=== PATIENT | female | born 1990 ===

== ENCOUNTER 2017-08-28 10:10 | Emergency (ER) | payer MEDICAID ==
[2017-08-28 10:42] VITALS: TEMP 98.1; BMI 35.7
[2017-08-28] MEDS ORDERED: Sodium Chloride 0.9% 1,000 ML IV STA (11:03)
[2017-08-28 11:25] LABS: URINE BILIRUBIN NEGATIVE (NEGATIVE); URINE BLOOD NEGATIVE (NEGATIVE); URINE GLUCOSE (UA) NEGATIVE (NEGATIVE); URINE KETONE NEGATIVE (NEGATIVE); URINE LEUKOCYTE ESTERASE SMALL Leu/uL (NEGATIVE); URINE PROTEIN TRACE mg/dL (<30 mg/dL); URINE UROBILINOGEN 0.2 E.U./dL (<1 E.U./dL)
[2017-08-28 11:33] LABS: URINE APPEARANCE CLEAR (CLEAR); URINE COLOR YELLOW (YELLOW)
--- NOTE | 2017-08-28 11:33 | ED PDOC ---
Arrival/HPI - General Chief Complaint: Abdominal Pain Time Seen by Provider: 08/28/17 10:47 Historian: Patient - History of Present Illness Narrative History of Present Illness (Text): 08/28/17 11:26 26-year-old female presents today with right lower quadrant abdominal pain. Patient states the pain has been intermittent for the past 2 weeks but since this morning the pain has been constant. Patient states she's been vomiting and complaining of nausea. She describes the pain as sharp and throbbing and located in the right lower quadrant of the abdomen. Patient states the pain is nonradiating. Patient denies urinary symptoms. Denies fevers or chills. Denies chest pain or shortness of breath. Patient denies vaginal bleeding or discharge. Patient states she has not been using protection and is concerned that she may be . Patient also states she has a history of ovarian cysts. Past Medical History - Provider Review Nursing Documentation Reviewed: Yes - Travel History Have you recently traveled outside [place] w/in the past 3 mons?: No - Infectious Disease Hx of Infectious Diseases: None - Tetanus Immunization Tetanus Immunization: Unknown - Cardiac Hx Cardiac Disorders: No - Pulmonary Hx Respiratory Disorders: Yes Hx Asthma: Yes Hx Bronchitis: Yes - Neurological Hx Neurological Disorder: No - HEENT Hx HEENT Disorder: No - Renal Hx Renal Disorder: No - Endocrine/Metabolic Hx Endocrine Disorders: No - Hematological/Oncological Hx Blood Disorders: No - Integumentary Hx Dermatological Disorder: No - Musculoskeletal/Rheumatological Hx Musculoskeletal Disorders: No - Gastrointestinal Hx Gastrointestinal Disorders: No - Genitourinary/Gynecological Hx Genitourinary Disorders: No - Psychiatric Hx Psychophysiologic Disorder: Yes Hx Bipolar Disorder: Yes Hx Depression: Yes Hx Substance Use: No - Surgical History Hx Musculoskeletal Surgery: Yes (collar bone) Hx Tonsillectomy: Yes Other/Comment: Right collar bone sx, b/l ear sx TUBES, r ovary cysts removal sx - Anesthesia Hx Anesthesia: No (UNABLE TO BREATH DURING) Hx Anesthesia Reactions: No Hx Malignant Hyperthermia: No - Suicidal Assessment Feels Threatened In Home Enviroment: No Family/Social History - Physician Review Nursing Documentation Reviewed: Yes Family/Social History: Unknown Family HX Smoking Status: Former Smoker Hx Alcohol Use: Yes Hx Substance Use: No Hx Substance Use Treatment: No Allergies/Home Meds Allergies/Adverse Reactions: Allergies No Known Allergies Allergy (Verified 08/28/17 10:43) Review of Systems - Review of Systems Constitutional: absent: Fatigue, Fevers Respiratory: absent: SOB, Cough Cardiovascular: absent: Chest Pain, Palpitations Gastrointestinal: Abdominal Pain, Nausea, Vomiting. absent: Constipation, Diarrhea Genitourinary Female: absent: Dysuria, Frequency, Hematuria, Vaginal Bleeding, Vaginal Discharge Musculoskeletal: absent: Arthralgias, Back Pain, Neck Pain Skin: absent: Rash, Pruritis Neurological: absent: Headache, Dizziness Psychiatric: absent: Anxiety, Depression, Suicidal Ideation Physical Exam Vital Signs Reviewed: Yes Vital Signs Temp Pulse Resp BP Pulse Ox 08/28/17 15:57 98.1 F 96 H 18 122/57 L 97 08/28/17 15:27 79 18 126/78 96 08/28/17 13:24 89 18 128/86 96 08/28/17 12:35 98.1 F 99 H 20 131/93 H 95 08/28/17 11:14 94 H 18 136/68 99 08/28/17 10:41 98.1 F 106 H 19 141/75 99 Temperature: Afebrile Blood Pressure: Normal Pulse: Tachycardic Respiratory Rate: Normal Appearance: Positive for: Well-Appearing, Non-Toxic, Comfortable Pain Distress: None Mental Status: Positive for: Alert and Oriented X 3 - Systems Exam Head: Present: Atraumatic Mouth: Present: Moist Mucous Membranes Neck: Present: Normal Range of Motion Respiratory/Chest: Present: Clear to Auscultation, Good Air Exchange. No: Respiratory Distress, Accessory Muscle Use Cardiovascular: Present: Regular Rate and Rhythm, Normal S1, S2, Tachycardic Abdomen: Present: Tenderness (rlq tenderness, + suprapubic tenderness), Normal Bowel Sounds. No: Distention, Peritoneal Signs, Rebound, Guarding Genitourinary/Pelvic Exam: Present: Normal External Genitalia, Vaginal Discharge (+ white vaginal discharge noted), Cervical os Closed, Other ( chaparoned by chencho DIAZ). No: Vaginal Bleeding, Vaginal Lesions, Adenexal Tenderness, Adenexal Mass, Cervical Motion Tendernes, Odor Back: Present: Normal Inspection. No: CVA Tenderness Upper Extremity: Present: Normal ROM Lower Extremity: Present: Normal ROM Neurological: Present: GCS=15, Speech Normal Skin: Present: Warm, Dry, Normal Color. No: Rashes Psychiatric: Present: Alert, Oriented x 3 Medical Decision Making ED Course and Treatment: 08/28/17 11:35 Patient is nontoxic well appearing with stable vital signs presenting with [ severe] abdominal pain CBC wnl CMP wnl Lipase wnl Urinalysis + leukocytes, + yeast, + bacteria Ultrasound: FINDINGS: UTERUS: Measures 7.4 x 3.6 x 5.3 cm. Anteverted, normal in size and appearance. No fibroid or other mass lesion seen. ENDOMETRIUM: Measures 6.0 mm in diameter. Unremarkable. CERVIX: No cervical abnormality identified. RIGHT OVARY: Measures 3.6 x 3.8 x 2.0 cm. No solid mass. Normal flow. LEFT OVARY: Measures 3.8 x 3.8 x 2.2 cm. No solid mass. Normal flow. There is a 1.8 cm simple cyst. FREE FLUID: No significant free fluid noted. OTHER FINDINGS: None. IMPRESSION: Unremarkable pelvic ultrasound. CAT scan: FINDINGS: LOWER THORAX: Unremarkable. LIVER: Unremarkable. No gross lesion or ductal dilatation. GALLBLADDER AND BILE DUCTS: Unremarkable. PANCREAS: Unremarkable. No gross lesion or ductal dilatation. SPLEEN: Unremarkable. ADRENALS: Unremarkable. No mass. KIDNEYS AND URETERS: Unremarkable. No hydronephrosis. No solid mass. VASCULATURE: Unremarkable. No aortic aneurysm. BOWEL: Unremarkable. No obstruction. No gross mural thickening. APPENDIX: Normal appendix. PERITONEUM: Unremarkable. No free fluid. No free air. LYMPH NODES: Unremarkable. No enlarged lymph nodes. BLADDER: Unremarkable. REPRODUCTIVE: There is a lobulated cyst in the left adnexum measuring 32 x 36 mm. This could also be seen previously BONES: No acute fracture. OTHER FINDINGS: None. IMPRESSION: No acute findings. No evidence of appendicitis Patient reassessment: pt non toxic well appearing; no distress. feeling better after medications pt with white vaginal discharge; will treat for gc/chlamydia and send cultures. will add diflucan for yeast infection. will d/c home with keflex for uti. discussed all results in depth with patient and advised f/u with pmd and HISTOTECHNOLOGIST. advised immediate return if symptoms worsen,persist or if new symptoms develop. Patient verbalizes understanding of discharge instructions and need for immediate followup. all aspects of this case were discussed the attending of record. Impression: Abdominal pain, UTI, vaginal discharge, ovarian cyst Motrin every 6 hours as needed for pain keflex; 1 capsule 4 times daily x 7 days. Follow up with primary care physician within the next 2 days Follow up with the HISTOTECHNOLOGIST within the next 2 days. Return immediately if symptoms worsen persist or if new symptoms develop: High fevers, increasing pain, vomiting, diarrhea or any other concerning symptoms develop - Lab Interpretations Lab Results: 08/28/17 12:30 08/28/17 12:30 Lab Results 08/28/17 12:30: WBC 8.9 D, RBC 4.79, Hgb 13.7, Hct 42.6, MCV 88.9, MCH 28.6, MCHC 32.2, RDW 13.1, Plt Count 238, MPV 10.3, Gran % 72.0 H, Lymph % (Auto) 20.8 L, [place] % (Auto) 5.5, Eos % (Auto) 1.4 L, Baso % (Auto) 0.3, Gran # 6.37, Lymph # 1.8, [place] # 0.5, Eos # 0.1, Baso # 0.03 08/28/17 12:30: Beta HCG, Quant < 2.39 08/28/17 12:30: Sodium 141, Potassium 4.1, Chloride 105, Carbon Dioxide 27, Anion Gap 12, BUN 13, Creatinine 0.8, Est GFR ( Amer) > 60, Est GFR (Non- Af Amer) > 60, Random Glucose 78, Calcium 9.7, Total Bilirubin 0.5, AST 44 H, ALT 99 H, Alkaline Phosphatase 99, Total Protein 7.3, Albumin 4.3, Globulin 3.0 , Albumin/Globulin Ratio 1.5 08/28/17 11:00: Urine Color Yellow, Urine Appearance Clear, Urine pH 6.0, Ur Specific [place] >= 1.030, Urine Protein Trace H, Urine Glucose (UA) Negative, Urine Ketones Negative, Urine Blood Negative, Urine Nitrate Negative, Urine Bilirubin Negative, Urine Urobilinogen 0.2, Ur Leukocyte Esterase Small H, Urine RBC 0 - 2, Urine WBC 5 - 10, Ur Epithelial Cells 6 - 8, Amorphous Sediment Few, Urine Bacteria Many, Urine Other Uyeast - RAD Interpretation Radiology Orders: 08/28/17 11:02 TRANSVAGINAL [US] Stat 08/28/17 13:26 ABD & PELVIS IV CONTRAST ONLY [CT] Stat - Medication Orders Current Medication Orders: Discontinued Medications Acetaminophen (Tylenol 325mg Tab) 975 mg PO STAT STA Stop: 08/28/17 11:04 Last Admin: 08/28/17 12:24 Dose: 975 mg MAR Pain/Vitals Document 08/28/17 12:24 OCS (Rec: 08/28/17 12:25 [place] [facility] [id number] Pain Reassessment Is This A Pain ReAssessment? Yes Sleep Is patient sleeping during reassessment? No Presence of Pain Presence of Pain Yes Pain Scale Used Pain Scale Used Numeric Location Left, Right or Bilateral Right Upper or Lower Lower Pain Location Body Site Abdomen Description Constant Intensity 8 Scale Used Numeric Re-Assess: MAR Pain/Vitals Document 08/28/17 13:24 OCS (Rec: 08/28/17 15:09 [place] [facility] [id number] Pain Reassessment Is This A Pain ReAssessment? Yes Sleep Is patient sleeping during reassessment? No Presence of Pain Presence of Pain Yes Pain Scale Used Pain Scale Used Numeric Location Left, Right or Bilateral Right Upper or Lower Lower Pain Location Body Site Abdomen Description Constant Intensity 8 Scale Used Numeric Azithromycin (Zithromax) 1,000 mg PO STAT STA PRN Reason: Protocol Stop: 08/28/17 17:23 Ceftriaxone Sodium (Rocephin) 250 mg IM STAT STA PRN Reason: Protocol Stop: 08/28/17 17:23 Fluconazole (Diflucan) 150 mg PO STAT STA PRN Reason: Protocol Stop: 08/28/17 17:22 Sodium Chloride (Sodium Chloride 0.9%) 1,000 mls @ 999 mls/hr IV .Q1H1M STA Stop: 08/28/17 12:03 Last Admin: 08/28/17 12:24 Dose: 999 mls/hr eMAR Start Stop Document 08/28/17 12:24 OCS (Rec: 08/28/17 12:24 [place] [facility] [id number]) Intravenous Solution Start Date 08/28/17 Start Time 12:24 End Date 08/28/17 End time 13:24 Total Infusion Time 60 Ketorolac Tromethamine (Toradol) 30 mg IVP STAT STA Stop: 08/28/17 15:24 Last Admin: 08/28/17 15:52 Dose: 30 mg MAR Pain Assessment Document 08/28/17 15:52 OCS (Rec: 08/28/17 15:52 [place] [facility] [id number]) Pain Reassessment Is this a pain reassessment? Yes Sleep Is patient sleeping during reassessment? No Presence of Pain Presence of Pain Yes Location Left, Right or Bilateral Right Upper or Lower Lower Pain Location Body Site Abdomen Description Description Constant IVP Administration Document 08/28/17 15:52 OCS (Rec: 08/28/17 15:52 [place] [facility] [id number]) Charges for Administration # of IVP Administrations 1 Ondansetron HCl (Zofran Inj) 4 mg IVP STAT STA Stop: 08/28/17 15:23 Last Admin: 08/28/17 15:52 Dose: 4 mg IVP Administration Document 08/28/17 15:52 OCS (Rec: 08/28/17 15:52 [place] [facility] [place] Charges for Administration # of IVP Administrations 1 Disposition/Present on Arrival - Present on Arrival Any Indicators Present on Arrival: No History of DVT/PE: No History of Uncontrolled Diabetes: No Urinary Catheter: No History of Decub. Ulcer: No History Surgical Site Infection Following: None - Disposition Have Diagnosis and Disposition been Completed?: Yes Diagnosis: Ovarian cyst, Urinary tract infection, Abdominal pain, Vaginal discharge, Candidiasis Disposition: HOME/ ROUTINE Disposition Time: 17:43 Patient Plan: Discharge Condition: GOOD Discharge Instructions (ExitCare): Urinary Tract Infection in Women (ED), Ovarian Cyst (ED), Acute Abdominal Pain (ED) Additional Instructions: Motrin every 6 hours as needed for pain keflex; 1 capsule 4 times daily x 7 days. Follow up with primary care physician within the next 2 days Follow up with the HISTOTECHNOLOGIST within the next 2 days. Return immediately if symptoms worsen persist or if new symptoms develop: High fevers, increasing pain, vomiting, diarrhea or any other concerning symptoms develop Prescriptions: Cephalexin [Keflex] 500 mg PO QID #28 capsule Ibuprofen [Motrin] 600 mg PO Q6H PRN #20 tab PRN Reason: pain/fever reduction Referrals: Anju Lei MD [Staff Provider] - [facility] [Outside] - Follow up with primary [facility] [Outside] - Follow up with primary Jason Mae MD [Staff Provider] - Follow up with primary Forms: [employer] (American), WORK NOTE
[2017-08-28 11:35] LABS: URINE AMORPHOUS SEDIMENT FEW; URINE BACTERIA MANY (NEG); URINE RBC 0 - 2 /hpf (0-2)
[2017-08-28 12:52] LABS: BASO # 0.03 K/mm3 (0.0-2.0); BASO % 0.3 % (0.0-3.0); EOS # 0.1 (0.0-0.7); EOS % 1.4 % (1.5-5.0); GRAN # 6.37 (1.4-6.5); HEMATOCRIT 42.6 % (36.0-48.0); LYMPH # 1.8 (1.2-3.4); LYMPH % 20.8 % (22.0-35.0); MEAN CELL VOLUME 88.9 fl (80.0-105.0); MEAN CORPUSCULAR HEMOGLOBIN 28.6 pg (25.0-35.0); MEAN CORPUSCULAR HGB CONC 32.2 g/dl (31.0-37.0); MEAN PLATELET VOLUME 10.3 fl (7.0-11.0); MONO # 0.5 (0.1-0.6); MONO % 5.5 % (1.0-6.0); RED CELL DISTRIBUTION WIDTH 13.1 % (11.5-14.5); WHITE BLOOD COUNT 8.9 10^3/ul (4.5-11.0)
[2017-08-28 12:57] LABS: ALB/GLOB RATIO 1.5 (1.1-1.8); ALKALINE PHOSPHATASE 99 U/L (38-126); ALT/SGPT 99 U/L (7-56); AST/SGOT 44 U/L (14-36); BILIRUBIN,TOTAL 0.5 mg/dL (0.2-1.3); BLOOD UREA NITROGEN 13 mg/dL (7-21); CALCIUM 9.7 mg/dL (8.4-10.5); CARBON DIOXIDE 27 mmol/L (21-33); CHLORIDE 105 mmol/L (98-107); GFR AFRICAN-AMERICAN > 60; GLUCOSE,RANDOM 78 mg/dL (70-110); POTASSIUM 4.1 mmol/L (3.6-5.0); SODIUM 141 mmol/L (132-148); TOTAL PROTEIN 7.3 g/dL (5.8-8.3)
--- NOTE | 2017-08-28 13:21 | US ---
HISTORY: Right lower quadrant pain COMPARISON: None available. TECHNIQUE: Transvaginal pelvic ultrasound was performed. FINDINGS: UTERUS: Measures 7.4 x 3.6 x 5.3 cm. Anteverted, normal in size and appearance. No fibroid or other mass lesion seen. ENDOMETRIUM: Measures 6.0 mm in diameter. Unremarkable. CERVIX: No cervical abnormality identified. RIGHT OVARY: Measures 3.6 x 3.8 x 2.0 cm. No solid mass. Normal flow. LEFT OVARY: Measures 3.8 x 3.8 x 2.2 cm. No solid mass. Normal flow. There is a 1.8 cm simple cyst. FREE FLUID: No significant free fluid noted. OTHER FINDINGS: None. IMPRESSION: Unremarkable pelvic ultrasound.
[2017-08-28 13:25] VITALS: RESP 18
[2017-08-28] MEDS ORDERED: Iohexol 350 MG/100 ML VIAL ONE (14:22)
--- NOTE | 2017-08-28 15:31 | CT ---
PROCEDURE: CT Abdomen and Pelvis with contrast HISTORY: rlq abd pain COMPARISON: CT 06/12/2015 TECHNIQUE: Contrast dose: 100 cc of Omni 350 Radiation dose: Total exam DLP = 1127 mGy-cm. This CT exam was performed using one or more of the following dose reduction techniques: Automated exposure control, adjustment of the mA and/or kV according to patient size, and/or use of iterative reconstruction technique. FINDINGS: LOWER THORAX: Unremarkable. LIVER: Unremarkable. No gross lesion or ductal dilatation. GALLBLADDER AND BILE DUCTS: Unremarkable. PANCREAS: Unremarkable. No gross lesion or ductal dilatation. SPLEEN: Unremarkable. ADRENALS: Unremarkable. No mass. KIDNEYS AND URETERS: Unremarkable. No hydronephrosis. No solid mass. VASCULATURE: Unremarkable. No aortic aneurysm. BOWEL: Unremarkable. No obstruction. No gross mural thickening. APPENDIX: Normal appendix. PERITONEUM: Unremarkable. No free fluid. No free air. LYMPH NODES: Unremarkable. No enlarged lymph nodes. BLADDER: Unremarkable. REPRODUCTIVE: There is a lobulated cyst in the left adnexum measuring 32 x 36 mm. This could also be seen previously BONES: No acute fracture. OTHER FINDINGS: None. IMPRESSION: No acute findings. No evidence of appendicitis
[2017-08-28] MEDS ORDERED: cefTRIAXone (Rocephin) 250 mg Inj IM STA (17:22)
[2017-08-28 17:36] VITALS: BP 118/59; PULSE 89; O2SAT 98
== END 2017-08-28 18:18 | disposition home or self-care (01) ==
LOC: ED 10:10
DX: N39.0 Urinary tract infection, site not specified (principal); N83.202 Unspecified ovarian cyst, left side; B37.3 Candidiasis of vulva and vagina
CPT/HCPCS: 74177; 76830; 80053; 81001; 84702; 85025; 87086; 87491; 87591; 96361; 96372; 96374; 96375; 99285; J0696; J1885; J2405; J7040; Q9967

== ENCOUNTER 2018-06-08 20:36 | Emergency (ER) | payer MEDICAID ==
[2018-06-08 20:37] VITALS: BMI 35.7
[2018-06-08 21:05] VITALS: RESP 17; TEMP 98
--- NOTE | 2018-06-08 21:21 | ED PDOC ---
Arrival/HPI - General Chief Complaint: Abdominal Pain Time Seen by Provider: 06/08/18 21:05 Historian: Patient - History of Present Illness Narrative History of Present Illness (Text): 06/08/18 21:18 Patient 27 yo F complains of intermittent diffuse abdominal pain x2 months, associated with N/V, occurs after eating. States that she was evaluated at [facility] ER on 05/20/18, labs, US and CT A/P was done. Patient states her US of abdomen was normal with a normal gallbladder. CT A/P showed small hiatal hernia, 1.6 cm liver hemangioma, evidence of mesenteric adenitis, and diverticulosis without diverticulitis. She reports having an endoscopy 1 year ago, only showed hiatal hernia, otherwise wnl. Otherwise: (-) urinary symptoms, (-) diarrhea, (-) fever, (-) melena, (-) hematochezia. Has no history of prior abdominal surgery. PMD [facility] Past Medical History - Infectious Disease Hx of Infectious Diseases: None - Tetanus Immunization Tetanus Immunization: Unknown - Cardiac Hx Cardiac Disorders: No - Pulmonary Hx Respiratory Disorders: Yes Hx Asthma: Yes Hx Bronchitis: Yes - Neurological Hx Neurological Disorder: No - HEENT Hx HEENT Disorder: No - Renal Hx Renal Disorder: No - Endocrine/Metabolic Hx Endocrine Disorders: No - Hematological/Oncological Hx Blood Disorders: No - Integumentary Hx Dermatological Disorder: No - Musculoskeletal/Rheumatological Hx Musculoskeletal Disorders: No - Gastrointestinal Hx Gastrointestinal Disorders: No - Genitourinary/Gynecological Hx Genitourinary Disorders: No - Psychiatric Hx Psychophysiologic Disorder: Yes Hx Bipolar Disorder: Yes Hx Depression: Yes Hx Substance Use: No - Surgical History Hx Tonsillectomy: Yes Other/Comment: cyst removed from left ovary. R clavicle surgery - Anesthesia Hx Anesthesia: No (UNABLE TO BREATH DURING) Hx Anesthesia Reactions: No Hx Malignant Hyperthermia: No - Suicidal Assessment Feels Threatened In Home Enviroment: No Family/Social History Family/Social History: No Known Family HX Smoking Status: Former Smoker Hx Alcohol Use: Yes Hx Substance Use: No Hx Substance Use Treatment: No Allergies/Home Meds Allergies/Adverse Reactions: Allergies lecithin, soy Adverse Reaction (Severe, Verified 06/08/18 21:03) ANAPHYLAXIS Review of Systems - Review of Systems Constitutional: absent: Fatigue, Weight Change, Fevers Respiratory: absent: SOB, Cough Cardiovascular: absent: Chest Pain, Palpitations Gastrointestinal: Abdominal Pain, Nausea. absent: Diarrhea, Vomiting Genitourinary Female: absent: Dysuria, Frequency, Hematuria Musculoskeletal: absent: Arthralgias, Back Pain, Neck Pain Skin: absent: Rash, Pruritis, Skin Lesions Neurological: absent: Headache, Dizziness Physical Exam Vital Signs Temp Pulse Resp BP Pulse Ox 06/08/18 21:04 98.0 F 97 H 17 124/55 L 98 Temperature: Afebrile Blood Pressure: Normal Pulse: Regular Respiratory Rate: Normal Appearance: Positive for: Well-Appearing, Non-Toxic, Comfortable Pain Distress: Mild Mental Status: Positive for: Alert and Oriented X 3 - Systems Exam Head: Present: Atraumatic, Normocephalic Pupils: Present: PERRL Extroacular Muscles: Present: EOMI Conjunctiva: Present: Normal Mouth: Present: Moist Mucous Membranes Neck: Present: Normal Range of Motion Respiratory/Chest: Present: Clear to Auscultation, Good Air Exchange. No: Respiratory Distress, Accessory Muscle Use Cardiovascular: Present: Regular Rate and Rhythm, Normal S1, S2. No: Murmurs Abdomen: Present: Tenderness (+mild diffuse abdominal tenderness). No: Distention, Peritoneal Signs, Rebound, Guarding, Mass/Organomegaly, Scars Back: Present: Normal Inspection. No: CVA Tenderness, Midline Tenderness Upper Extremity: Present: Normal Inspection, Normal ROM, NORMAL PULSES. No: Cyanosis, Edema Lower Extremity: Present: Normal Inspection, NORMAL PULSES, Normal ROM. No: Edema Neurological: Present: GCS=15, CN II-XII Intact, Speech Normal, Motor Func Grossly Intact, Normal Sensory Function Skin: Present: Warm, Dry, Normal Color. No: Rashes Psychiatric: Present: Alert, Oriented x 3, Normal Insight, Normal Concentration Medical Decision Making ED Course and Treatment: 06/08/18 21:17 Previous medical records reviewed, patient was seen and evaluated in this ER on 08/28/17 for c/o RLQ pain, CT A/P negative. Plan: -- Labs -- IV fluids -- Pepcid / Zofran -- Reassess and disposition 06/08/18 23:15 Labs reviewed : Uhcg (-), UA (+) for infection, rest of the labs wnl. On reevaluation, patient reports improvement of symptoms, denies any nausea or abdominal pain at this time. On exam, patient remains awake alert and oriented 3 in no acute distress. Abdomen soft and nontender, without guarding or rebound. Lab results d/w the patient. Advised to follow up with primary care physician and GI in 1-2 days without fail. Advised to take medication as prescribed. Return to the emergency room at any time for any new or worsening symptoms. Patient states she fully agrees with and understands discharge instructions. States that she agrees with the plan and disposition. Verbalized and repeated discharge instructions and plan. I have given the patient opportunity to ask any additional questions. - Lab Interpretations Lab Results: 06/08/18 21:55 06/08/18 21:55 Lab Results 06/08/18 22:31: Urine Color Yellow, Urine Appearance Slight-cloudy, Urine pH 6.0 , Ur Specific [place] 1.025, Urine Protein Trace H, Urine Glucose (UA) Negative , Urine Ketones Trace H, Urine Blood Negative, Urine Nitrate Negative, Urine Bilirubin Negative, Urine Urobilinogen 0.2, Ur Leukocyte Esterase Small H, Urine RBC Negative, Urine WBC 0 - 2, Ur Epithelial Cells 1 - 3, Urine Bacteria Neg, Urine HCG, Qual Negative 06/08/18 21:55: Sodium 138, Potassium 4.7, Chloride 106, Carbon Dioxide 24, Anion Gap 13, BUN 13, Creatinine 0.6 L, Est GFR ( Amer) > 60, Est GFR ( Non-Af Amer) > 60, Random Glucose 114 H, Calcium 8.7, Magnesium 2.1, Total Bilirubin 0.7, AST 39 H, ALT 29, Alkaline Phosphatase 72, Total Protein 7.0, Albumin 4.0, Globulin 3.0, Albumin/Globulin Ratio 1.4, Lipase 38 06/08/18 21:55: PT 11.5, INR 1.01, APTT 27.6 06/08/18 21:55: WBC 7.0, RBC 4.27, Hgb 12.3 D, Hct 37.4, MCV 87.6, MCH 28.8, MCHC 32.9, RDW 13.1, Plt Count 237, MPV 10.3, Gran % 62.9, Lymph % (Auto) 28.6, [place] % (Auto) 6.5 H, Eos % (Auto) 1.6, Baso % (Auto) 0.4, Gran # 4.42, Lymph # ( Auto) 2.0, [place] # (Auto) 0.5, Eos # (Auto) 0.1, Baso # (Auto) 0.03 - Medication Orders Current Medication Orders: Discontinued Medications Famotidine (Pepcid) 20 mg IVP STAT STA Stop: 06/08/18 22:16 Last Admin: 06/08/18 23:08 Dose: 20 mg IVP Administration Document 06/08/18 23:08 IT (Rec: 06/08/18 23:08 [place] [facility] [id number] Charges for Administration # of IVP Administrations 1 Sodium Chloride (Sodium Chloride 0.9%) 1,000 mls @ 1,000 mls/hr IV .Q1H STA Stop: 06/08/18 23:14 Last Admin: 06/08/18 23:07 Dose: 1,000 mls/hr eMAR Start Stop Document 06/08/18 23:07 IT (Rec: 06/08/18 23:08 IT [facility] [id number] Intravenous Solution Start Date 06/08/18 Start Time 23:08 Ketorolac Tromethamine (Toradol) 30 mg IVP STAT STA Stop: 06/08/18 22:17 Last Admin: 06/08/18 23:08 Dose: 30 mg MAR Pain Assessment Document 06/08/18 23:08 IT (Rec: 06/08/18 23:08 IT [facility] [id number] Pain Reassessment Is this a pain reassessment? No Sleep Is patient sleeping during reassessment? No Presence of Pain Presence of Pain Yes IVP Administration Document 06/08/18 23:08 IT (Rec: 06/08/18 23:08 IT [facility] [id number] Charges for Administration # of IVP Administrations 1 Ondansetron HCl (Zofran Inj) 4 mg IVP STAT STA Stop: 06/08/18 22:16 Last Admin: 06/08/18 23:08 Dose: 4 mg IVP Administration Document 06/08/18 23:08 IT (Rec: 06/08/18 23:08 IT [facility] [id number] Charges for Administration # of IVP Administrations 1 - PA / MECH[employer]ISM [employer]SEM[employer]ER / Resident Statement /DO has reviewed & agrees with the documentation as recorded. Disposition/Present on Arrival - Present on Arrival Any Indicators Present on Arrival: No History of DVT/PE: No History of Uncontrolled Diabetes: No Urinary Catheter: No History of Decub. Ulcer: No History Surgical Site Infection Following: None - Disposition Have Diagnosis and Disposition been Completed?: Yes Diagnosis: Abdominal pain, Urinary tract infection Disposition: HOME/ ROUTINE Disposition Time: 23:30 Patient Plan: Discharge Patient Problems: Current Active Problems Problem Status Onset Abdominal pain Acute Urinary tract infection Acute Condition: IMPROVED Discharge Instructions (ExitCare): Urinary Tract Infections in Adults, Acute Abdomen (Belly Pain) Additional Instructions: Thank you for letting us take care of you today. You were treated for abdominal pain, UTI. The emergency medical care you received today was directed at your acute symptoms. If you were prescribed any medication, please fill it and take as directed. It may take several days for your symptoms to resolve. Return to the Emergency Department if your symptoms worsen, do not improve, or if you have any other problems. Please contact your primary care and GI doctor in 2 days for re-evaluation and follow up. Bring any paperwork you were given at discharge with you along with any medications you are taking to your follow up visit. Our treatment cannot replace ongoing medical care by a primary care provider (PCP) outside of the emergency department. Thank you for allowing the [facility] team to be part of your care today. If you had an X-Ray or CT scan: A Radiologist will review the ED reading if any change in treatment is needed we will contact you. If you had a urine, or wound culture: It will take several days for the results , if any change in treatment is needed we will contact you. Prescriptions: Nitrofurantoin Macrocrystals [Macrobid] 100 mg PO BID #14 cap Forms: [employer] (Lao), WORK NOTE
[2018-06-08] MEDS ORDERED: Sodium Chloride 0.9% 1,000 ML IV STA (22:15)
[2018-06-08 22:22] LABS: BASO # 0.03 K/mm3 (0.0-2.0); BASO % 0.4 % (0.0-3.0); EOS # 0.1 (0.0-0.7); EOS % 1.6 % (1.5-5.0); GRAN # 4.42 (1.4-6.5); GRAN % 62.9 % (50.0-68.0); HEMOGLOBIN 12.3 g/dL (12.0-16.0); LYMPH % 28.6 % (22.0-35.0); MEAN CELL VOLUME 87.6 fl (80.0-105.0); MEAN CORPUSCULAR HEMOGLOBIN 28.8 pg (25.0-35.0); MEAN CORPUSCULAR HGB CONC 32.9 g/dl (31.0-37.0); MEAN PLATELET VOLUME 10.3 fl (7.0-11.0); MONO # 0.5 (0.1-0.6); MONO % 6.5 % (1.0-6.0); RBC 4.27 10^6/uL (3.5-6.1); RED CELL DISTRIBUTION WIDTH 13.1 % (11.5-14.5)
[2018-06-08 22:32] LABS: INR 1.01; PARTIAL THROMBOPLASTIN TIME 27.6 Seconds (25.1-36.5); PROTHROMBIN TIME 11.5 SECONDS (9.4-12.5)
[2018-06-08 22:33] LABS: CALCIUM 8.7 mg/dL (8.4-10.5); GFR NON-AFRICAN AMERICAN > 60; LIPASE 38 U/L (23-300)
[2018-06-08 22:34] LABS: ALB/GLOB RATIO 1.4 (1.1-1.8); ALT/SGPT 29 U/L (7-56); AST/SGOT 39 U/L (14-36); BLOOD UREA NITROGEN 13 mg/dL (7-21)
[2018-06-08 22:49] LABS: URINE GLUCOSE (UA) NEGATIVE (NEGATIVE)
[2018-06-08 22:50] LABS: URINE APPEARANCE SLIGHT-CLOUDY (CLEAR); URINE BILIRUBIN NEGATIVE (NEGATIVE); URINE BLOOD NEGATIVE (NEGATIVE); URINE COLOR YELLOW (YELLOW); URINE LEUKOCYTE ESTERASE SMALL Leu/uL (NEGATIVE); URINE PROTEIN TRACE mg/dL (<30 mg/dL); URINE UROBILINOGEN 0.2 E.U./dL (<1 E.U./dL)
[2018-06-08 22:51] LABS: HCG,QUALITATIVE URINE NEGATIVE (NEGATIVE)
[2018-06-08 22:53] LABS: URINE BACTERIA NEG (NEG); URINE RBC NEGATIVE /hpf (0-2); URINE WBC 0 - 2 /hpf (0-6)
[2018-06-08 23:44] VITALS: BP 130/80; PULSE 89; O2SAT 100
== END 2018-06-08 23:44 | disposition home or self-care (01) ==
LOC: ED 20:36
DX: N39.0 Urinary tract infection, site not specified (principal); R10.84 Generalized abdominal pain; Z87.891 Personal history of nicotine dependence
CPT/HCPCS: 80053; 81001; 83690; 83735; 84703; 85025; 85610; 85730; 87086; 96374; 96375; 99283; J1885; J2405; J7030

== ENCOUNTER 2018-10-25 18:13 | Emergency (ER) | payer MEDICAID ==
[2018-10-25 18:14] VITALS: BMI 35.7
[2018-10-25 18:37] VITALS: TEMP 97.6
[2018-10-25] MEDS ORDERED: Sodium Chloride 0.9% 1,000 ML IV STA (19:11)
[2018-10-25 19:40] LABS: BASO # 0.04 K/mm3 (0.0-2.0); BASO % 0.3 % (0.0-3.0); EOS # 0.1 (0.0-0.7); EOS % 0.4 % (1.5-5.0); HEMOGLOBIN 14.1 g/dL (12.0-16.0); LYMPH # 2.8 (1.2-3.4); LYMPH % 21.1 % (22.0-35.0); MEAN CELL VOLUME 86.5 fl (80.0-105.0); MEAN CORPUSCULAR HEMOGLOBIN 28.1 pg (25.0-35.0); MEAN CORPUSCULAR HGB CONC 32.5 g/dl (31.0-37.0); MEAN PLATELET VOLUME 10.4 fl (7.0-11.0); MONO # 0.8 (0.1-0.6); MONO % 5.7 % (1.0-6.0); RBC 5.02 10^6/uL (3.5-6.1); RED CELL DISTRIBUTION WIDTH 12.8 % (11.5-14.5); WHITE BLOOD COUNT 13.4 10^3/uL (4.5-11.0)
[2018-10-25 19:44] LABS: INR 1.19; PARTIAL THROMBOPLASTIN TIME 33.8 Seconds (26.9-38.3); PROTHROMBIN TIME 13.2 SECONDS (9.4-12.5)
[2018-10-25 19:46] LABS: ALB/GLOB RATIO 1.4 (1.1-1.8); ALBUMIN 4.8 g/dL (3.0-4.8); ALT/SGPT 49 U/L (7-56); AST/SGOT 28 U/L (14-36); BLOOD UREA NITROGEN 8 mg/dL (7-21); CALCIUM 10.5 mg/dL (8.4-10.5); GFR NON-AFRICAN AMERICAN > 60
[2018-10-25 19:56] LABS: TROPONIN I < 0.01 ng/mL
[2018-10-25 20:25] LABS: PH,URINE 7.5 (4.7-8.0); URINE BILIRUBIN NEGATIVE (NEGATIVE); URINE BLOOD NEGATIVE (NEGATIVE); URINE GLUCOSE (UA) NEGATIVE (NEGATIVE); URINE LEUKOCYTE ESTERASE NEGATIVE Leu/uL (NEGATIVE); URINE PROTEIN NEGATIVE mg/dL (<30 mg/dL); URINE UROBILINOGEN 0.2 E.U./dL (<1 E.U./dL)
[2018-10-25 20:27] LABS: URINE APPEARANCE CLEAR (CLEAR); URINE COLOR LIGHT YELLOW (YELLOW)
[2018-10-25 20:31] LABS: BARBITURATES, UR NEGATIVE (NEGATIVE); BENZODIAZEPINES, UR NEGATIVE (NEGATIVE); OPIATES, UR NEGATIVE (NEGATIVE); PHENCYCLIDINE, UR NEGATIVE (NEGATIVE)
[2018-10-25 20:50] LABS: T3 UPTAKE 32.8 % (23.0-41.0); T4 9.6 ug/dL (5.5-11.0)
[2018-10-25 22:40] VITALS: BP 121/81; PULSE 96; RESP 18; O2SAT 20
--- NOTE | 2018-10-25 22:41 | ED PDOC ---
Arrival/HPI - General Chief Complaint: Palpitations Time Seen by Provider: 10/25/18 18:42 Historian: Patient - History of Present Illness Narrative History of Present Illness (Text): 10/25/18 22:44 28yo female with pmhx of ADHD who present with complaint of having palpitation s/p taking aderall. States she was on Aderall years ago and stopped secondary to insurance reason, but was was recently placed on a high dose last week. States she started having palpitations with tingling sensation of her extremities s/p taking the medication. She denies chest pain, dizziness, nausea, focal weakness, visual changes, diaphoresis, any other complaint. Past Medical History - Provider Review Nursing Documentation Reviewed: Yes - Infectious Disease Hx of Infectious Diseases: None - Tetanus Immunization Tetanus Immunization: Unknown - Cardiac Hx Cardiac Disorders: No - Pulmonary Hx Respiratory Disorders: Yes Hx Asthma: Yes Hx Bronchitis: Yes - Neurological Hx Neurological Disorder: No - HEENT Hx HEENT Disorder: No - Renal Hx Renal Disorder: No - Endocrine/Metabolic Hx Endocrine Disorders: No - Hematological/Oncological Hx Blood Disorders: No - Integumentary Hx Dermatological Disorder: No - Musculoskeletal/Rheumatological Hx Musculoskeletal Disorders: No - Gastrointestinal Hx Gastrointestinal Disorders: No - Genitourinary/Gynecological Hx Genitourinary Disorders: No - Psychiatric Hx Psychophysiologic Disorder: Yes Hx Bipolar Disorder: Yes Hx Depression: Yes Hx Substance Use: No - Surgical History Other/Comment: Right collar bone sx, b/l ear sx TUBES, r ovary cysts removal sx - Anesthesia Hx Anesthesia: Yes (UNABLE TO BREATH DURING) Hx Anesthesia Reactions: No Hx Malignant Hyperthermia: No - Suicidal Assessment Feels Threatened In Home Enviroment: No Family/Social History - Physician Review Nursing Documentation Reviewed: Yes Family/Social History: Unknown Family HX Smoking Status: Former Smoker Hx Alcohol Use: Yes Hx Substance Use: No Hx Substance Use Treatment: No Allergies/Home Meds Allergies/Adverse Reactions: Allergies lecithin, soy Adverse Reaction (Severe, Verified 06/08/18 21:03) ANAPHYLAXIS Physical Exam Vital Signs Reviewed: Yes Vital Signs Temp Pulse Resp BP Pulse Ox 10/25/18 18:36 97.6 F 104 H 19 135/86 98 Temperature: Afebrile Blood Pressure: Normal Pulse: Tachycardic Respiratory Rate: Normal Appearance: Positive for: Well-Appearing, Non-Toxic, Comfortable, Other ([place] obese abd appear obese) Pain Distress: None Mental Status: Positive for: Alert and Oriented X 3 - Systems Exam Head: Present: Atraumatic, Normocephalic Pupils: Present: PERRL Extroacular Muscles: Present: EOMI Conjunctiva: Present: Normal Mouth: Present: Moist Mucous Membranes Neck: Present: Normal Range of Motion Respiratory/Chest: Present: Clear to Auscultation, Good Air Exchange. No: Respiratory Distress, Accessory Muscle Use Cardiovascular: Present: Regular Rate and Rhythm, Normal S1, S2. No: Murmurs Abdomen: No: Tenderness, Distention, Peritoneal Signs Back: Present: Normal Inspection Upper Extremity: Present: Normal Inspection. No: Cyanosis, Edema Lower Extremity: Present: Normal Inspection. No: Edema Neurological: Present: GCS=15, CN II-XII Intact, Speech Normal Skin: Present: Warm, Dry, Normal Color. No: Rashes Psychiatric: Present: Alert, Oriented x 3, Normal Insight, Normal Concentration Medical Decision Making ED Course and Treatment: 10/25/18 22:51 28yo female who present to ED for stated history. she was tachy and appear anxious on arrival EKG Sinus tachy @ 118 chest xray NAD Labs reviewed was all unremarkable she was hydrated and Ativan given On re evaluation she noted improvement of her symptoms she was DC home and advised to stop Aderral until she speak with her PMD. Advised TRT ED for any new or worsening symptoms - Lab Interpretations Lab Results: PT 13.2 SECONDS (9.4-12.5) H 10/25/18 19:30 INR 1.19 10/25/18 19:30 APTT 33.8 Seconds (26.9-38.3) 10/25/18 19:30 Troponin I < 0.01 ng/mL 10/25/18 19:30 Total Bilirubin 0.4 mg/dL (0.2-1.3) 10/25/18 19:30 AST 28 U/L (14-36) 10/25/18 19:30 ALT 49 U/L (7-56) 10/25/18 19:30 Alkaline Phosphatase 107 U/L (38-126) 10/25/18 19:30 Total Protein 8.1 g/dL (5.8-8.3) 10/25/18 19:30 Albumin 4.8 g/dL (3.0-4.8) 10/25/18 19:30 Globulin 3.3 gm/dL 10/25/18 19:30 Albumin/Globulin Ratio 1.4 (1.1-1.8) 10/25/18 19:30 Urine Color Light yellow (YELLOW) 10/25/18 20:01 Urine Appearance Clear (CLEAR) 10/25/18 20:01 Urine pH 7.5 (4.7-8.0) 10/25/18 20:01 Ur Specific [place] 1.015 (1.005-1.035) 10/25/18 20:01 Urine Protein Negative mg/dL (<30 mg/dL) 10/25/18 20:01 Urine Glucose (UA) Negative mg/dL (NEGATIVE) 10/25/18 20:01 Urine Ketones Negative mg/dL (NEGATIVE) 10/25/18 20:01 Urine Blood Negative (NEGATIVE) 10/25/18 20:01 Urine Nitrate Negative (NEGATIVE) 10/25/18 20:01 Urine Bilirubin Negative (NEGATIVE) 10/25/18 20:01 Urine Urobilinogen 0.2 E.U./dL (<1 E.U./dL) 10/25/18 20:01 Ur Leukocyte Esterase Negative Fidel/uL (NEGATIVE) 10/25/18 20:01 - RAD Interpretation Radiology Orders: 10/25/18 19:10 CHEST PORTABLE [RAD] Stat - Medication Orders Current Medication Orders: Discontinued Medications Aspirin (Aspirin) 325 mg PO STAT STA Stop: 10/25/18 20:54 Last Admin: 10/25/18 21:13 Dose: 325 mg Sodium Chloride (Sodium Chloride 0.9%) 1,000 mls @ 999 mls/hr IV .Q1H1M STA Stop: 10/25/18 20:11 Last Admin: 10/25/18 19:46 Dose: 999 mls/hr eMAR Start Stop Document 10/25/18 19:46 OCS (Rec: 10/25/18 19:47 OCS [facility] [id number]) Intravenous Solution Start Date 10/25/18 Start Time 19:47 End Date 10/25/18 End time 20:48 Total Infusion Time 61 Lorazepam (Ativan) 1 mg IVP ONCE ONE; Protocol Stop: 10/25/18 19:12 Last Admin: 10/25/18 19:46 Dose: 1 mg IVP Administration Document 10/25/18 19:46 OCS (Rec: 10/25/18 19:46 OCS [facility] [id number]) Charges for Administration # of IVP Administrations 1 Disposition/Present on Arrival - Present on Arrival Any Indicators Present on Arrival: No History of DVT/PE: No History of Uncontrolled Diabetes: No Urinary Catheter: No History of Decub. Ulcer: No History Surgical Site Infection Following: None - Disposition Have Diagnosis and Disposition been Completed?: Yes Diagnosis: Palpitation Disposition: HOME/ ROUTINE Disposition Time: 22:40 Patient Plan: Discharge Patient Problems: Current Active Problems Problem Status Onset Palpitation Acute Condition: STABLE Discharge Instructions (ExitCare): Palpitations Additional Instructions: Follow up with your doctor Return to ED for any new symptoms Referrals: Mariah Payan MD [Primary Care Provider] - Follow up with primary Forms: [email or web address] (Syriac)
--- NOTE | 2018-10-26 11:06 | CARD ---
APPROVED REPORT Date of service: 10/25/2018 EKG Measurement Heart [id number] <Conclusion> Sinus tachycardia Otherwise normal ECG
--- NOTE | 2018-10-26 14:16 | RAD ---
Date of service: 10/25/2018 HISTORY: Palpitation COMPARISON: 10/28/2017 FINDINGS: LUNGS: No active pulmonary disease. PLEURA: No significant pleural effusion identified, no pneumothorax apparent. CARDIOVASCULAR: No atherosclerotic calcification present Normal. OSSEOUS STRUCTURES: No significant abnormalities. Stable postoperative changes right clavicle VISUALIZED UPPER ABDOMEN: Normal. OTHER FINDINGS: None. IMPRESSION: No active disease. No significant interval change compared to the prior examination(s).
== END 2018-10-25 23:26 | disposition home or self-care (01) ==
LOC: ED 18:13
DX: R00.2 Palpitations (principal); F90.9 Attention-deficit hyperactivity disorder, unspecified type; Z87.891 Personal history of nicotine dependence; F31.9 Bipolar disorder, unspecified
CPT/HCPCS: 71045; 80053; 80324; 80345; 80346; 80349; 80353; 80358; 80361; 81003; 81025; 82550; 83615; 83992; 84436; 84443; 84479; 84484; 85025; 85610; 85730; 93005; 96361; 96374; 99284; J2060; J7030

== ENCOUNTER 2018-11-15 12:59 | Emergency (ER) | payer MEDICAID ==
[2018-11-15 13:22] VITALS: BMI 34.3
--- NOTE | 2018-11-15 14:49 | ED PDOC ---
Arrival/HPI - General Chief Complaint: Palpitations Time Seen by Provider: 11/15/18 13:03 - History of Present Illness Narrative History of Present Illness (Text): 11/15/18 14:50 28F w/ psychiatric history presenting to the Emergency Department for rash and jitteriness after being on Geodon for a month. She reports being started on a large dose of Geodon per her psychiatrist and has noted increased anxiety, palpitations, rash, pruritus and periorbital swelling over the last month. She reports worsening of the rash over the last 24 hours and reports being seen multiple times in the emergency room for similar complaint with no explanation for her symptoms. The patient denies having any difficulty breathing, use of new makeup, ointments, creams, hair dyes or recent exposure to animal dander. She denies any previous similar instances. Time/Duration: Prior to Arrival Symptom Course: Unchanged Activities at Onset: Rest Context: Home Past Medical History - Provider Review Nursing Documentation Reviewed: Yes - Travel History Have you recently traveled outside [place] w/in the past 3 mons?: No - Infectious Disease Hx of Infectious Diseases: None - Tetanus Immunization Tetanus Immunization: Unknown - Cardiac Hx Cardiac Disorders: No - Pulmonary Hx Respiratory Disorders: Yes Hx Asthma: Yes Hx Bronchitis: Yes - Neurological Hx Neurological Disorder: No - HEENT Hx HEENT Disorder: No - Renal Hx Renal Disorder: No - Endocrine/Metabolic Hx Endocrine Disorders: No - Hematological/Oncological Hx Blood Disorders: No - Integumentary Hx Dermatological Disorder: No - Musculoskeletal/Rheumatological Hx Musculoskeletal Disorders: No - Gastrointestinal Hx Gastrointestinal Disorders: No - Genitourinary/Gynecological Hx Genitourinary Disorders: No - Psychiatric Hx Psychophysiologic Disorder: Yes Hx Bipolar Disorder: Yes Hx Depression: Yes Hx Substance Use: No - Surgical History Other/Comment: Right collar bone sx, b/l ear sx TUBES, r ovary cysts removal sx - Anesthesia Hx Anesthesia: Yes (UNABLE TO BREATH DURING) Hx Anesthesia Reactions: No Hx Malignant Hyperthermia: No - Suicidal Assessment Feels Threatened In Home Enviroment: No Family/Social History - Physician Review Nursing Documentation Reviewed: Yes Family/Social History: Unknown Family HX Smoking Status: Former Smoker Hx Alcohol Use: Yes Hx Substance Use: No Hx Substance Use Treatment: No Allergies/Home Meds Allergies/Adverse Reactions: Allergies lecithin, soy Adverse Reaction (Severe, Verified 06/08/18 21:03) ANAPHYLAXIS Review of Systems - Physician Review All systems were reviewed & negative as marked: Yes - Review of Systems Skin: Rash, Pruritis Physical Exam Vital Signs Reviewed: Yes Temperature: Afebrile Blood Pressure: Normal Pulse: Regular Respiratory Rate: Normal Appearance: Positive for: Well-Appearing, Non-Toxic, Comfortable Mental Status: Positive for: Alert and Oriented X 3 - Systems Exam Head: Present: Atraumatic, Normocephalic Pupils: Present: PERRL Extroacular Muscles: Present: EOMI Conjunctiva: Present: Normal Mouth: Present: Moist Mucous Membranes, Normal Tounge Pharnyx: Present: Normal. No: ERYTHEMA, EXUDATE, Uvular Deviation Neck: Present: Normal Range of Motion Respiratory/Chest: Present: Clear to Auscultation, Good Air Exchange. No: Respiratory Distress, Accessory Muscle Use, Wheezes Cardiovascular: Present: Regular Rate and Rhythm, Normal S1, S2. No: Murmurs Abdomen: Present: Normal Bowel Sounds. No: Tenderness, Distention Neurological: Present: GCS=15, Speech Normal Skin: Present: Warm, Dry, Rashes (blanching rash noted to neck and upper chest a joe. Erythema noted to cheeks b/l), Normal Color Psychiatric: Present: Alert, Oriented x 3, Normal Insight, Normal Concentration Medical Decision Making ED Course and Treatment: 11/15/18 17:16 Impression 28F w/ pruritis, urticarial rash s/p Geodon use Differential Diagnoses Includes But Is Not Limited To: --Allergic Reaction --Contact dermatitis Plan --Pepcid --Prednisone --Benadryl --Reassess & disposition Progress Notes - EKG Interpretation EKG Interpretation (Text): 11/15/18 17:25 EKG reviewed, shows sinus tachycardia at 104 bpm, No ST elevations. Interpreted by ED Physician: Yes Type: 12 lead EKG - Medication Orders Current Medication Orders: Discontinued Medications Diphenhydramine HCl (Benadryl) 50 mg PO STAT STA Stop: 11/15/18 13:38 Last Admin: 11/15/18 14:20 Dose: 50 mg Famotidine (Pepcid) 40 mg PO STAT STA Stop: 11/15/18 13:38 Last Admin: 11/15/18 14:20 Dose: 40 mg Prednisone (Prednisone Tab) 60 mg PO STAT ONE Stop: 11/15/18 13:38 Last Admin: 11/15/18 14:20 Dose: 60 mg Disposition/Present on Arrival - Present on Arrival Any Indicators Present on Arrival: No History of DVT/PE: No History of Uncontrolled Diabetes: No Urinary Catheter: No History of Decub. Ulcer: No History Surgical Site Infection Following: None - Disposition Have Diagnosis and Disposition been Completed?: Yes Diagnosis: Allergic reaction caused by a drug Disposition: HOME/ ROUTINE Disposition Time: 14:44 Patient Plan: Discharge Patient Problems: Current Active Problems Problem Status Onset Allergic reaction caused by a drug Acute Condition: IMPROVED Discharge Instructions (ExitCare): Adverse Drug Reactions, Adult (DC), Allergy Skin Testing Print Language: MALDIVIAN Additional Instructions: Please take medication as prescribed. Do not do anything physically strenuous for at least 4 hours after taking Doron adryl Prescriptions: DiphenhydrAMINE [Benadryl] 50 mg PO Q6H #12 cap Famotidine [Pepcid] 40 mg PO Q6H #10 tablet Methylprednisolone [Medrol Dose Pack (21 tabs)] 4 mg PO DAILY #21 mg Referrals: Sheila Rowe MD [Medical Doctor] - [place] up with primary [facility] [place] - Follow up with primary Forms: [employer] (Greek), WORK NOTE
--- NOTE | 2018-11-15 23:34 | CARD ---
APPROVED REPORT Date of service: 11/15/2018 EKG Measurement Heart [id number] <Conclusion> Sinus tachycardia Cannot rule out Anterior infarct Abnormal R wave progression V1-5. Questionable lead placement Abnormal ECG
== END 2018-11-15 14:51 | disposition home or self-care (01) ==
LOC: ED 12:59
DX: R00.2 Palpitations (principal); L27.0 Generalized skin eruption due to drugs and medicaments taken internally; T43.595A Adverse effect of other antipsychotics and neuroleptics, initial encounter